=== PATIENT | male | born 1985 | race Caucasian/White ===

== ENCOUNTER 2021-03-25 21:05 | Emergency (ER) | payer OTHER ==
[2021-03-25] MEDS: LORazepam 1 MG TABLET PO STA ×2 (21:22→21:44)
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
[2021-03-25] MEDS ORDERED: LORazepam 2 MG/ML VIAL ONE ×2 (21:29→21:52)
[2021-03-25] MEDS ORDERED: HALOPERIDOL 5 MG/ML VIAL ONE ×2 (21:29→21:53)
[2021-03-25 21:47] LABS: MUDS CUTOFF CONCENTRATIONS CUTOFF CONC BELOW:
[2021-03-25 21:49] LABS: BILIRUBIN,URINE NEGATIVE (NEGATIVE); GLUCOSE, URINE (UA) NEGATIVE (NEGATIVE); KETONES,URINE (UA) NEGATIVE (NEGATIVE); LEUKOCYTE ESTERASE, URINE NEGATIVE (NEGATIVE); NITRITE,URINE NEGATIVE (NEGATIVE); OCCULT BLOOD,URINE NEGATIVE (NEGATIVE); PROTEIN,URINE NEGATIVE (NEGATIVE); UROBILINOGEN,URINE 0.2 (NORMAL) E.U./dL (NORMAL)
[2021-03-25 21:51] LABS: CLARITY,URINE CLEAR (CLEAR)
[2021-03-25] MEDS ORDERED: KETAMINE 500 MG/10 ML VIAL ONE (21:58)
[2021-03-25 22:02] LABS: AMPHETAMINE SCREEN,URINE NEGATIVE (NEGATIVE); BARBITURATE SCREEN,UR NEGATIVE (NEGATIVE); BENZODIAZEPINES SCREEN, URINE NEGATIVE (NEGATIVE); COCAINE SCREEN URINE NEGATIVE (NEGATIVE); METHADONE SCREEN, URINE NEGATIVE (NEGATIVE); METHAMPHETAMINES SCREEN, URINE NEGATIVE (NEGATIVE); OPIATE SCREEN, URINE NEGATIVE (NEGATIVE); OXYCODONE SCREEN, URINE NEGATIVE (NEGATIVE); THC CANNABINOID SCREEN, URINE POSITIVE (NEGATIVE); TRICYCLIC ANTIDEPRESSANT,URINE NEGATIVE (NEGATIVE)
[2021-03-25 22:03] LABS: PROPOXYPHENE SCREEN, URINE NEGATIVE (NEGATIVE)
[2021-03-25] MEDS ORDERED: KETAMINE 500 MG/10 ML VIAL IM STA ×2 (22:10→22:11)
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
[2021-03-25] MEDS ORDERED: LORazepam 2 MG/ML VIAL IM STA ×2 (22:29)
[2021-03-25] MEDS ORDERED: HALOPERIDOL 5 MG/ML VIAL IM STA ×2 (22:30)
[2021-03-25 22:47] LABS: BASOPHILS % (AUTO) 0.3 %; EOSINOPHILS % (AUTO) 0.1 %; HCT - HEMATOCRIT 44.1 % (42.0-52.0); HGB - HEMOGLOBIN 14.2 g/dL (14.0-18.0); LYMPHOCYTES # (AUTO) 1.5 10^3/uL (1.5-3.5); LYMPHOCYTES % (AUTO) 14.8 %; MEAN CORPUSCULAR HEMOGLOBIN 29.2 pg (27.0-31.0); MEAN CORPUSCULAR HGB CONC 32.2 g/dL (32.0-36.0); MEAN CORPUSCULAR VOLUME 90.6 fL (80.0-94.0); MEAN PLATELET VOLUME 9.6 fL (7.4-11.4); MONOCYTES # (AUTO) 0.7 10^3/uL (0.0-1.0); MONOCYTES % (AUTO) 7.2 %; NEUTROPHILS # (AUTO) 7.7 10^3/uL (1.5-6.6); NEUTROPHILS % (AUTO) 77.3 %; PLT - PLATELET COUNT 308 10^3/uL (130-450); RED BLOOD COUNT 4.87 10^6/uL (4.70-6.10); RED CELL DISTRIBUTION WIDTH 12.5 % (12.0-15.0); WHITE BLOOD COUNT 9.9 x10^3/uL (4.8-10.8)
[2021-03-25 23:01] LABS: ACETAMINOPHEN < 10 ug/mL (10-30); ALBUMIN 4.9 g/dL (3.2-5.5); ALBUMIN/GLOBULIN RATIO 1.6 (1.0-2.2); ALKALINE PHOSPHATASE 48 IU/L (42-121); ALT ALANINE AMINOTRANSFERASE 20 IU/L (10-60); AST ASPARTATE AMINOTRANSFERASE 25 IU/L (10-42); BILIRUBIN,TOTAL 0.8 mg/dL (0.2-1.0); BUN - BLOOD UREA NITROGEN 16 mg/dL (6-20); CALCIUM 8.8 mg/dL (8.5-10.3); CARBON DIOXIDE - CO2 20 mmol/L (21-32); CHLORIDE 102 mmol/L (101-111); CREATININE 1.2 mg/dL (0.6-1.2); ETOH - ETHANOL 305.9 mg/dL; GFR - MDRD 68 (>89); GLUCOSE 110 mg/dL (70-100); LIPASE 50 U/L (22-51); POTASSIUM 3.5 mmol/L (3.5-5.0); SALICYLATE < 6.0 mg/dL; SODIUM 137 mmol/L (135-145); TOTAL PROTEIN 7.9 g/dL (6.7-8.2)
[2021-03-26] MEDS ORDERED: FOLIC ACID INJ 1 MG, THIAMINE INJ 100 MG, MAGNESIUM SULFATE 2 GM, MULTIVITAMIN 10 ML in... IV STA ×5 (07:45)
[2021-03-26 14:21] LABS: B. PARAPERTUSSIS- RESP PCR PAN NOT DETECTED; B. PERTUSSIS- RESP PCR PANEL NOT DETECTED; C. PNEUMONIAE- RESP PCR PANEL NOT DETECTED; CORONAVIRUS 229E-RESP PCR NOT DETECTED; CORONAVIRUS HKU1-RESP PCR NOT DETECTED; CORONAVIRUS NL63-RESP PCR NOT DETECTED; CORONAVIRUS OC43-RESP PCR NOT DETECTED; HUMAN METAPNEUMOVIRUS NOT DETECTED; INFLUENZA A- RESP PCR PANEL NOT DETECTED; INFLUENZA B - RESP PCR PANEL NOT DETECTED; M. PNEUMONIAE- RESP PCR PANEL NOT DETECTED; PARAINFLUENZA VIRUS 1 NOT DETECTED; PARAINFLUENZA VIRUS 2 NOT DETECTED; PARAINFLUENZA VIRUS 3 NOT DETECTED; PARAINFLUENZA VIRUS 4 NOT DETECTED; RHINOVIRUS/ENTEROVIRUS NOT DETECTED; RSV- RESP PCR PANEL NOT DETECTED; SARS-CoV-2 -RESP PCR PANEL NOT DETECTED
[2021-03-26 17:58] VITALS: BP 127/70
[2021-03-26] MEDS ORDERED: LORazepam 2 MG/ML VIAL IVP STA (19:05)
--- NOTE | 2021-03-26 19:08 | ED Physician Documentation ---
ED Addendum - Addendum Addendum: 03/26/21 19:07 Pretty stable towards the beginning of my shift, ambulating around the department without complaint. Seen by social work who felt he was particularly dangerous and recommended DCR evaluation. He was evaluated by DCR [place] and detained to [facility] for further evaluation and psychiatric treatment. He is stable for transport there. He did need some Ativan for anxiolysis on my shift after being read his rights. Cobras were completed. Disposition transfer to psychiatric facility Condition stable Condition diagnoses: 1. Depression 2. Alcohol intoxication 3. Belligerent behavior, resolved
== END 2021-03-26 21:28 ==
LOC: ED 21:05
DX: T14.91XA Suicide attempt, initial encounter (principal); Y93.9 Activity, unspecified; F32.9 Major depressive disorder, single episode, unspecified; F10.129 Alcohol abuse with intoxication, unspecified; Z20.822 Contact with and (suspected) exposure to COVID-19; Z78.1 Physical restraint status
CPT/HCPCS: 0202U; 36415; 80053; 80306; 80307; 80320; 80329; 81003; 83690; 84443; 85025; 96365; 96366; 96372; 96375; 99285; J2060; J3411; 81001; 87086